=== PATIENT | male | born 1995 | race African-American/Black ===

== ENCOUNTER 2017-07-22 22:23 | Emergency (ER) | payer SELFPAY ==
[2017-07-22 22:45] LABS: Bilirubin Negative (Negative); Blood, Urine Negative (Negative); Glucose, Urine (Dipstick) Negative (Negative); Ketone, Urine Negative (Negative); Nitrite Negative (Negative); Protein, Urine (Dipstick) Negative (Neg-Trace)
[2017-07-22 22:47] LABS: Bacteria/HPF None Seen HPF (None Seen); Hyaline Casts/LPF 4-6 HYALINE CAST LPF (0-3 Hyaline); Squamous Epithelial None Seen HPF (0-3); WBC/HPF 21-50 HPF (0-3)
[2017-07-22] MEDS ORDERED: Azithromycin 250 MG TAB ONE (23:09)
[2017-07-22] MEDS ORDERED: cefTRIAXone\\ROCEPHIN 250 MG VIAL ONE (23:09)
[2017-07-22] MEDS ORDERED: Lidocaine 1% PF 5 ML VIAL ONE (23:09)
== END 2017-07-22 23:33 | disposition home or self-care (01) ==
LOC: ERS 22:23
DX: N34.2 Other urethritis (principal)
CPT/HCPCS: 81003; 81015; 87491; 87591; 96372; J0696; J2001

== ENCOUNTER 2019-10-17 10:22 | Emergency (ER) | payer SELFPAY ==
[2019-10-17 12:46] LABS: Bacteria/HPF None Seen HPF (None Seen); Bilirubin Negative (Negative); Blood, Urine Negative (Negative); Clarity Clear (Clear); Glucose, Urine (Dipstick) Normal (Negative); Leukocyte 75 Leu/uL (Negative); Nitrite Negative (Negative); Protein, Urine (Dipstick) Negative (Neg-Trace); RBC/HPF 0-3 HPF (0-3); Squamous Epithelial 0-3 HPF (0-3); Urobilinogen Normal mg/dL (Less than 2); WBC/HPF 21-50 HPF (0-3)
[2019-10-17] MEDS ORDERED: cefTRIAXone\\ROCEPHIN 250 MG VIAL ONE (13:10)
[2019-10-17] MEDS ORDERED: Azithromycin 250 MG TAB ONE (13:10)
[2019-10-17] MEDS ORDERED: Lidocaine 1% PF 5 ML VIAL ONE (13:11)
[2019-10-19 00:55] LABS: Chlam.trachomatis by PCR,Urine Not Detected (NotDetected)
== END 2019-10-17 13:53 | disposition home or self-care (01) ==
LOC: ERS 10:22
DX: N34.2 Other urethritis (principal)
CPT/HCPCS: 81003; 81015; 87491; 87591; 96372; 99283; J0696; J2001